=== PATIENT | male | born 1945 | race Caucasian/White ===

== ENCOUNTER → 2023-06-06 13:13 | Outpatient (REF) | payer MEDICARE, OTHER, SELFPAY ==
[2023-06-06 14:13] LABS: % Basophils 0.7 % (0-2); % Eosinophils 3.2 % (0-6); % Immature Granulocytes 0.5 % (0-0.5); % Lymphocytes 9.3 % (20.5-51.1); % Monocytes 9.9 % (1.7-9.3); % Neutrophils 76.4 % (42.2-75.2); Absolute Basophils 0.1 10^3/uL (0-0.2); Absolute Eosinophils 0.3 10^3/uL (0-0.7); Absolute Immature Granulocytes 0.1 10^3/uL (0-0.05); Absolute Neutrophils 7.9 10^3/uL (1.4-6.5); Hematocrit 40.1 % (39.0-52.0); Hemoglobin 12.6 g/dL (13.0-18.0); Mean Corp Hgb Conc. 31.4 g/dL (33.0-37.0); Mean Corpuscular Hgb 27.8 pg (27.0-31.0); Mean Corpuscular Volume 88.5 fL (80.0-94.0); Mean Platelet Volume 9.9 fL (7.4-10.4); Nucleated Red Blood Cells % 0 % (-); Platelet Count 262 10^3/uL (130-400); Red Blood Cell Count 4.53 10^6/uL (4.70-6.10); Red Cell Dist. Width 13.9 % (11.5-14.5); White Blood Cell Count 10.3 10^3/uL (4.8-10.8)
[2023-06-06 14:24] LABS: Urine Albumin Negative (Neg - Trace); Urine Bilirubin Negative (Negative); Urine Character Clear (Clear); Urine Color Yellow; Urine Glucose Negative (Negative); Urine Ketone Negative (Negative); Urine Leukocyte Negative (Negative); Urine Nitrite Negative (Negative); Urine Occult Blood Negative (Negative); Urine Urobilinogen Negative (Neg - 1+)
[2023-06-06 15:40] LABS: ALT (SGPT) 21 U/L (0-50); AST (SGOT) 25 U/L (17-59); Albumin 4.4 g/dl (3.5-5.0); Alkaline Phosphatase 79 U/L (38-126); Blood Urea Nitrogen 28 mg/dl (9-20); Calcium 9.7 mg/dl (8.4-10.2); Carbon Dioxide 27 mmol/L (22-30); Chloride 106 mmol/L (98-107); Glucose 97 mg/dl (70-99); HDL Cholesterol 53 mg/dl; LDL Cholesterol, Calculated 28 mg/dl; Potassium 4.4 mmol/L (3.5-5.1); Sodium 140 mmol/L (135-145); Total Bilirubin 0.7 mg/dl (0.2-1.3); Total Cholesterol 100 mg/dl (50-199); Total Protein 7.3 g/dl (6.3-8.2); Triglyceride 99 mg/dl (10-149); Very Low Density Lipoprotein 19 mg/dl (0-30); eGFR 55.53
[2023-06-06 15:53] LABS: Vitamin D, 25-OH*** 95.5 ng/mL (30-80)
== END ==
LOC: REG 13:13
PROVIDERS: ATTENDING PHYSICIAN Internal Medicine Geriatric Medicine; REFERRING PHYSICIAN Internal Medicine Cardiovascular Disease
DX: M79.10 Myalgia, unspecified site (principal); E11.9 Type 2 diabetes mellitus without complications; I10 Essential (primary) hypertension; E78.5 Hyperlipidemia, unspecified; E55.9 Vitamin D deficiency, unspecified; G47.33 Obstructive sleep apnea (adult) (pediatric); M71.20 Synovial cyst of popliteal space [Baker], unspecified knee; K40.90 Unilateral inguinal hernia, without obstruction or gangrene, not specified as recurrent; I35.0 Nonrheumatic aortic (valve) stenosis; R01.1 Cardiac murmur, unspecified; E11.41 Type 2 diabetes mellitus with diabetic mononeuropathy; Z13.89 Encounter for screening for other disorder; Z23 Encounter for immunization
CPT/HCPCS: 36415; 80053; 80061; 81003; 82306; 83036; 85025

== ENCOUNTER → 2024-07-31 13:17 | Outpatient (REF) | payer MEDICARE, OTHER, SELFPAY ==
[2024-07-31 14:47] LABS: ALT (SGPT) 24 U/L (0-50); AST (SGOT) 25 U/L (17-59); Albumin 4.3 g/dl (3.5-5.0); Alkaline Phosphatase 69 U/L (38-126); Blood Urea Nitrogen 29 mg/dl (9-20); Calcium 9.5 mg/dl (8.4-10.2); Carbon Dioxide 28 mmol/L (22-30); Chloride 109 mmol/L (98-107); Glucose 111 mg/dl (70-99); Potassium 5.2 mmol/L (3.5-5.1); Sodium 142 mmol/L (135-145); Total Bilirubin 0.8 mg/dl (0.2-1.3); Total Protein 7.1 g/dl (6.3-8.2); eGFR > 60.00
[2024-07-31 15:03] LABS: Glycohemoglobin (HgbA1c) 6.9 % (4.0-5.6)
[2024-07-31 16:01] LABS: PSA, Total - Diagnostic 1.49 ng/ml (0.0-4.0)
== END ==
LOC: REG 13:17
PROVIDERS: ATTENDING PHYSICIAN Specialist; FAMILY PHYSICIAN Internal Medicine Geriatric Medicine; REFERRING PHYSICIAN Internal Medicine Endocrinology, Diabetes & Metabolism
DX: E11.9 Type 2 diabetes mellitus without complications (principal); C61 Malignant neoplasm of prostate; M79.10 Myalgia, unspecified site; N39.41 Urge incontinence
CPT/HCPCS: 36415; 80053; 83036; 84153

== ENCOUNTER → 2025-01-25 11:16 | Outpatient (REF) | payer MEDICARE, OTHER, SELFPAY ==
[2025-01-25 12:18] LABS: Hematocrit 40.2 % (39.0-52.0); Hemoglobin 12.7 g/dL (13.0-18.0); Mean Corp Hgb Conc. 31.6 g/dL (33.0-37.0); Mean Corpuscular Volume 92.0 fL (80.0-94.0); Nucleated Red Blood Cells % 0 % (-); Platelet Count 217 10^3/uL (130-400); Red Cell Dist. Width 14.3 % (11.5-14.5)
[2025-01-25 12:40] LABS: Glycohemoglobin (HgbA1c) 7.1 % (4.0-5.9)
[2025-01-25 13:15] LABS: Urine Character Clear (Clear)
[2025-01-25 13:31] LABS: ALT (SGPT) 29 U/L (0-50); AST (SGOT) 26 U/L (17-59); Albumin 4.3 g/dl (3.5-5.0); Alkaline Phosphatase 71 U/L (38-126); Blood Urea Nitrogen 32 mg/dl (9-20); Calcium 9.5 mg/dl (8.4-10.2); Carbon Dioxide 30 mmol/L (22-30); Chloride 106 mmol/L (98-107); Glucose 111 mg/dl (70-99); HDL Cholesterol 53 mg/dl; LDL Cholesterol, Calculated 39 mg/dl; Potassium 4.9 mmol/L (3.5-5.1); Sodium 142 mmol/L (135-145); Total Protein 7.1 g/dl (6.3-8.2); Very Low Density Lipoprotein 22 mg/dl (0-30); eGFR > 60.00
[2025-01-25 13:54] LABS: Vitamin D, 25-OH*** 75.4 ng/mL (30-80)
[2025-01-25 14:49] LABS: Urine Squamous Cell 21-25 /LPF (Few); Urine Urothelial Cell 0-2 /LPF (FEW)
== END ==
LOC: REG 11:16
PROVIDERS: ATTENDING PHYSICIAN Internal Medicine Geriatric Medicine
DX: Z79.899 Other long term (current) drug therapy (principal); E11.9 Type 2 diabetes mellitus without complications; R73.01 Impaired fasting glucose; R79.9 Abnormal finding of blood chemistry, unspecified; R79.89 Other specified abnormal findings of blood chemistry; E67.3 Hypervitaminosis D; R82.90 Unspecified abnormal findings in urine
CPT/HCPCS: 36415; 80053; 80061; 81003; 81015; 82306; 83036; 85025